=== PATIENT | female | born 1955 | race African-American/Black ===

== ENCOUNTER 2023-01-08 18:58 | Emergency (ER) | payer MEDICARE ==
[~2023-01-08] VITALS: Ht 162.6 cm; Wt 68.0 kg
== END 2023-01-08 21:15 | disposition home or self-care (01) ==
LOC: ER 19:00
DX: S01.112A Laceration without foreign body of left eyelid and periocular area, initial encounter (principal); W22.8XXA Striking against or struck by other objects, initial encounter; Y92.29 Other specified public building as the place of occurrence of the external cause
CPT/HCPCS: 70450; 72125; 99283